=== PATIENT | male | born 1985 | race Caucasian/White ===

== ENCOUNTER 2021-11-14 12:45 | Emergency (ER) | payer BC, SELFPAY ==
[2021-11-14 13:01] VITALS: BP 139/87; PULSE 87; RESP 18; TEMP 36.6; O2SAT 98
--- NOTE | 2021-11-14 13:08 | ED.EAR ---
HPI - Ear Problem General Chief complaint: Ear Stated complaint: rt ear pain Time Seen by Provider: 11/14/21 13:08 Source: patient, RN notes reviewed and old records reviewed Mode of arrival: ambulatory Limitations: no limitations History of Present Illness HPI Narrative: 36-year-old male who presents to [facility] care with complaints of right ear pain which started yesterday. Patient states initially he had, pressure feeling in his right ear he used some OTC eardrops for his ear pain and it seemed to help. This morning he had some yellowish drainage on his pillow and now his right ear is mainly ringing. He does admit to some sinus congestion. MD Complaint: ear pain Location: right ear Treatment prior to arrival: eardrops (OTC) Related Data Home Medications Medication Instructions Recorded Confirmed dextroamphetamine-amphetamine ER 25 mg PO DAILY 11/14/21 11/14/21 25 mg 24hr capsule,extend release (Adderall XR) sertraline 100 mg tablet 100 mg DAILY 11/14/21 11/14/21 Allergies Allergy/AdvReac Type Severity Reaction Status Date / Time No Known Allergies Allergy Unverified 04/22/11 17:39 Review of Systems Review of Systems: CONSTITUTIONAL: Denies fever, chills, or sweats. EYES: Denies visual changes, redness, or discharge. ENT: positive for rhinorrhea, congestion,no sore throat,positive for right otalgia. CARDIOVASCULAR: Denies chest pain, palpitations, or edema. RESPIRATORY: Denies cough or dyspnea. GASTROINTESTINAL: Denies abdominal pain, nausea, vomiting, or diarrhea. GENITOURINARY: Denies dysuria or hematuria. SKIN: Denies rash or itching. MUSCULOSKELETAL: Denies back pain, joint pain, or myalgia. NEUROLOGIC: Denies headache, numbness, or weakness. PSYCHIATRIC: Denies anxiety or depression. All systems reviewed & are unremarkable except as noted in HPI and below PMFSH Past Medical History Medical History (Updated 11/16/21 @ 21:22 by Vanessa Sharp NP) ADHD (attention deficit hyperactivity disorder) Anxiety and depression Mononucleosis Social History Social History (Updated 11/14/21 @ 13:28 by Vanessa Sharp NP) Smoking status: Never smoker Alcohol intake: never Substance use type: does not use Gender identity (if verbalized by the patient): Male Comments At time of signature, agree with nursing past medical, surgical, social and family history. There is no relevant family history pertinent to the presenting complaint Exam Narrative: GENERAL: Well-appearing, well-nourished, and in no acute distress. HEAD: Normocephalic, atraumatic. EYES: PERRLA and EOMI. ENT: Nares clear, clear rhinorrhea no epistaxis. Mucous membranes moist.Right TM red and bulging no drainage noted, Left TM normal with good light reflex, throat pink with no lesions or swelling NECK: Supple. no lymphadenopathy CHEST: Clear to auscultation. No respiratory distress.SAO2 98% on room air HEART: Regular rate and rhythm. No murmur heard. Normal peripheral pulses. ABDOMEN: Soft, nontender, nondistended, normal active bowel sounds. EXTREMITIES: Normal range of motion. No edema. SKIN: Warm, dry, no rash. NEURO: No focal deficits. Alert and oriented x3. Course Course Level of Care: Express Care Visit Vital Signs Vital signs: Vital Signs Temperature 36.6 C 11/14/21 13:01 Pulse Rate 87 11/14/21 13:01 Respiratory Rate 18 11/14/21 13:01 Blood Pressure 139/87 11/14/21 13:01 Pulse Oximetry 98 11/14/21 13:01 Oxygen Delivery Room Air 11/14/21 13:01 Temperature 36.6 C 11/14/21 13:01 Pulse Rate 87 11/14/21 13:01 Respiratory Rate 18 11/14/21 13:01 Blood Pressure 139/87 11/14/21 13:01 Pulse Oximetry 98 11/14/21 13:01 Oxygen Delivery Room Air 11/14/21 13:01 Medical Decision Making Differential Diagnosis Differential Diagnosis: URI, otitis media, otitis externa, viral syndrome Medical Records Medical records reviewed: Yes I reviewed the external patient's medical records.
== END 2021-11-14 13:27 | disposition home or self-care (01) ==
PROVIDERS: Emergency Provider Registered Nurse
DX: H66.91 Otitis media, unspecified, right ear (principal); F90.9 Attention-deficit hyperactivity disorder, unspecified type; F41.9 Anxiety disorder, unspecified; F32.A Depression, unspecified
CPT/HCPCS: 99213; G0463

== ENCOUNTER 2022-08-06 10:07 | Emergency (ER) | payer BC, SELFPAY ==
--- NOTE | 2022-08-06 10:11 | ED.MALEGU ---
HPI - Male Genitourinary General Chief complaint: Urogenital-Male Stated complaint: Male Urogenital Time Seen by Provider: 08/06/22 10:26 Source: patient and RN notes reviewed Mode of arrival: ambulatory Limitations: no limitations History of Present Illness HPI Narrative: 37-year-old male presents with concern for hematuria. He reports he noticed it started yesterday. He reports suprapubic pressure that extends toward his left testicle. He denies any testicle pain, redness, swelling. He denies dysuria, frequency, urgency. Denies nausea, vomiting, diarrhea, chills, sweats, fever. He denies back pain. He denies any history of problems with his bladder. Denies concern for STDs. He reports several weeks ago he started on rosuvastatin MD Complaint: other (Hematuria) Related Data Home Medications Medication Instructions Recorded Confirmed dextroamphetamine-amphetamine ER 25 mg PO DAILY 11/14/21 08/06/22 25 mg 24hr capsule,extend release (Adderall XR) sertraline 100 mg tablet 100 mg DAILY 11/14/21 08/06/22 rosuvastatin 10 mg tablet 10 mg PO DAILY 08/06/22 08/06/22 Allergies Allergy/AdvReac Type Severity Reaction Status Date / Time No Known Allergies Allergy Verified 08/06/22 10:24 Review of Systems Review of Systems: CONSTITUTIONAL: Denies malaise, chills, sweats, or fever. CARDIOVASCULAR: Denies chest pain, palpitations, or edema. RESPIRATORY: Denies cough or dyspnea. GASTROINTESTINAL: Denies abdominal pain, nausea, vomiting, diarrhea GENITOURINARY: Denies dysuria, frequency, urgency, suprapubic pressure. Denies flank pain. Reports hematuria. SKIN: Denies rash or itching. MUSCULOSKELETAL: Denies back pain or myalgia. All systems reviewed & are unremarkable except as noted in HPI and below PMFSH Past Medical History Medical History (Updated 08/06/22 @ 10:29 by Tootie Herbert NP) ADHD (attention deficit hyperactivity disorder) Anxiety and depression Mononucleosis Social History Social History (Updated 11/14/21 @ 13:28 by Vanessa Sharp NP) Smoking status: Never smoker Alcohol intake: never Substance use type: does not use Gender identity (if verbalized by the patient): Male Comments At time of signature, agree with nursing past medical, surgical, social and family history. There is no relevant family history pertinent to the presenting complaint Exam Narrative: GENERAL: Well-appearing, well-nourished, and in no acute distress. HEAD: Normocephalic. EYES: PERRLA, conjunctivae clear. NECK: Supple. No lymphadenopathy CHEST: Clear to auscultation. No respiratory distress. HEART: Regular rate and rhythm. ABDOMEN: Soft, nontender upon palpation, nondistended, normal active bowel sounds, no palpable or pulsatile masses, no guarding. No CVA tenderness SKIN: Warm, dry, no rash. NEURO: Alert and oriented x3. PSYCH: Normal mood and affect Course Course Emergency Course: Patient is aware of diagnosis, understands and agrees to treatment plan. Anticipatory guidance given. Patient agrees to follow-up as directed and is aware of reasons to seek care at the emergency department. Portions of this record may have been created with voice recognition software Level of Care: Express Care Visit Vital Signs Vital signs: Reviewed. MDM - Male Genitourinary MDM Narrative Medical decision making narrative: Exam findings and UA show no acute concerns or changes; patient is non-toxic appearing and is in no distress. Patient is appropriate for outpatient treatment and follow-up. Differential Diagnosis Differential diagnosis: Likely urinary tract infection, urethritis, epididymitis and prostatitis Critical Care Time Critical Care Time Critical Care Time: No Discharge Plan Discharge Clinical Impression: Hematuria Patient Disposition: Home, Self-Care Condition: Stable Instructions: Hematuria (ED) Additional Instructions: We will send a urine culture to the lab; if th
[2022-08-06 10:17] VITALS: BP 133/88; PULSE 92; RESP 18; TEMP 36.7; O2SAT 100
== END 2022-08-06 10:40 | disposition home or self-care (01) ==
PROVIDERS: Emergency Provider Nurse Practitioner
DX: R31.9 Hematuria, unspecified (principal); F90.9 Attention-deficit hyperactivity disorder, unspecified type; F41.9 Anxiety disorder, unspecified; F32.A Depression, unspecified
CPT/HCPCS: 81003; 87086; 99213; G0463

== ENCOUNTER 2023-11-12 00:56 | Day surgery (SDC) | payer BC, SELFPAY ==
[2023-10-25 13:57] VITALS: BMI 24.4
[2023-11-12 11:08] VITALS: BP 115/84; PULSE 75; RESP 14; TEMP 36.5; O2SAT 100
[2023-11-12] MEDS: LACTATED RINGERS 1,000 ML 150 ML IV CONT (11:16)
--- NOTE | 2023-11-12 11:17 | WPDANESEPPF ---
Anes - Initial Pre Proc Eval Procedure: Operation Date: 11/12/23 12:30 Proposed Procedures p Colonoscopy - Brian Garcia MD Date/Time: 11/12/23 11:17 Surgeon: Brian Garcia MD Pre Op Diagnosis: Hemorrhage of anus and rectum Patient Data Age: 38 Gender: M Height: 1.78 m Weight: 75.6 kg Last Vital Signs Temp 97.7 F 11/12/23 11:08 Pulse 75 11/12/23 11:08 Resp 14 11/12/23 11:08 BP 115/84 11/12/23 11:08 Pulse Ox 100 11/12/23 11:08 O2 Del Method Room Air 11/12/23 11:08 Allergies Allergy/AdvReac Type Severity Reaction Status Date / Time No Known Allergies Allergy Verified 11/12/23 11:07 Home Medications Medication Instructions Recorded Confirmed Type sertraline 100 mg tablet 100 mg PO DAILY #90 tabs 04/29/23 11/12/23 Rx hydrocortisone 2.5 % topical cream 1 applic RECTAL BID PRN 08/24/23 11/12/23 Rx with perineal applicator hemorrhoids #30 grams dextroamphetamine-amphetamine ER 50 mg PO . Q.a.m. #60 caps 10/29/23 11/12/23 Rx 25 mg 24hr capsule,extend release (Adderall XR) Patient hx anesthesia problems: none Family hx anesthesia problems: none Results Review: All pre-operative results and documents have been reviewed as part of the pre-operative evaluation. [facility] Past Medical History Medical History (Updated 11/06/23 @ 09:36 by Cole Rivera MD) ADHD (attention deficit hyperactivity disorder) ADHD (attention deficit hyperactivity disorder), inattentive type (~1996) BMI 24.0-24.9, adult BMI 25.0-25.9,adult Central sleep apnea (~2018) Chronic anxiety (~1996) Chronic constipation Chronic depression (~1996) Encounter for wellness examination in adult Mixed hyperlipidemia total cholesterol 233, triglycerides 198, HDL 48, LDL 145 on 11/04/2022. Cholesterol 229, triglycerides 187, HDL 52, LDL 145 with ratio 4.4 on 11/03/2023. Mononucleosis Rectal bleeding Hemoglobin 14.8 with iron 52 with 14% saturation and ferritin 60 on 11/03/2023 Family History Family History Father Hypertension Cerebrovascular accident Mother Thyroid disorder Social History Social History Smoking status: Never smoker Alcohol intake: current Drinks per week: 1 Alcohol use details: beer Substance use: never Substance use type: does not use Lack of Transportation: No Lack of Food: Never True Current Housing: I Have Housing Concerned About Future Housing: No Difficulty Paying Gas/Electric Bills: No Difficulty Paying for Meds: No Currently Unemployed: No Education: Bachelor's Degree Difficulty w/ Childcare or Family Care: No Living arrangements: with family Gender identity (if verbalized by the patient): Male Spiritual care concerns: No Anes - Eval Final PreProcedure Day of Procedure 11/12/23 11:17 Patient weight: normal Heart: regular rate and rhythm Lungs: clear to auscultation Airway: Mallampati scale class II Neurological: alert and oriented Last oral intake: >/= 8 hours ASA classification: II Emergent: no Anesthetic plan: proceed Anesthesia type and monitoring: general GIVS and standard monitoring Results Review: All pre-operative results and documents have been reviewed as part of the pre-operative evaluation. Informed Consent: The patient's anesthetic plan and its attendant risks and benefits were discussed with the patient/family/POA. Questions were solicited and answers provided to the satisfaction of the patient/family/POA.
--- NOTE | 2023-11-12 11:42 | PM.HPGS ---
History of Present Illness History of Present Illness Consent: Risks, benefits, and alternatives have been discussed and questions answered. Patient agrees to proceed with procedure. Chief complaint: Hemorrhage of anus and rectum Narrative: Juan Staley is a 38 year old male with episode of rectal bleeding, had colonoscopy about 14 years ago for same reason Review of Systems Review of Systems: All systems reviewed & are unremarkable except as noted in HPI and below PMFSH Past Medical History Medical History (Updated 11/06/23 @ 09:36 by Cole Rivera MD) ADHD (attention deficit hyperactivity disorder) ADHD (attention deficit hyperactivity disorder), inattentive type (~1996) BMI 24.0-24.9, adult BMI 25.0-25.9,adult Central sleep apnea (~2018) Chronic anxiety (~1996) Chronic constipation Chronic depression (~1996) Encounter for wellness examination in adult Mixed hyperlipidemia total cholesterol 233, triglycerides 198, HDL 48, LDL 145 on 11/04/2022. Cholesterol 229, triglycerides 187, HDL 52, LDL 145 with ratio 4.4 on 11/03/2023. Mononucleosis Rectal bleeding Hemoglobin 14.8 with iron 52 with 14% saturation and ferritin 60 on 11/03/2023 Family History Family History Father Hypertension Cerebrovascular accident Mother Thyroid disorder Social History Social History Smoking status: Never smoker Alcohol intake: current Drinks per week: 1 Alcohol use details: beer Substance use: never Substance use type: does not use Lack of Transportation: No Lack of Food: Never True Current Housing: I Have Housing Concerned About Future Housing: No Difficulty Paying Gas/Electric Bills: No Difficulty Paying for Meds: No Currently Unemployed: No Education: Bachelor's Degree Difficulty w/ Childcare or Family Care: No Living arrangements: with family Gender identity (if verbalized by the patient): Male Spiritual care concerns: No Meds Home Medications and Allergies Home Medications Medication Instructions Recorded Confirmed Type sertraline 100 mg tablet 100 mg PO DAILY #90 tabs 04/29/23 11/12/23 Rx hydrocortisone 2.5 % topical cream 1 applic RECTAL BID PRN 08/24/23 11/12/23 Rx with perineal applicator hemorrhoids #30 grams dextroamphetamine-amphetamine ER 50 mg PO . Q.a.m. #60 caps 10/29/23 11/12/23 Rx 25 mg 24hr capsule,extend release (Adderall XR) Allergies Allergy/AdvReac Type Severity Reaction Status Date / Time No Known Allergies Allergy Verified 11/12/23 11:07 Vital Signs Vital Signs - 24 hr 11/12/23 11:08 Temperature 97.7 F Pulse Rate 75 Respiratory Rate 14 Blood Pressure 115/84 Pulse Oximetry 100 Oxygen Delivery Room Air Exam Const: General: comfortable and no acute distress HENMT: Face/Nose/Sinus: Normal nares present Eyes: General: appearance normal, both eyes and all related structures Neck: Neck: no JVD Resp: Auscultation: clear to auscultation bilaterally Cardio: Rate: regular rate Rhythm: regular rhythm GI: Inspection: non-distended GI Palp: Yes Soft to palpation Skin: General skin exam: normal color Neuro: General: gait normal Speech: normal speech Extrem: General: normal to inspection Psych: Mental Status: mental status grossly normal Assessment and Plan Assessment and plan (1) Rectal bleeding: Code(s): K62.5 - Hemorrhage of anus and rectum Status: Acute Assessment and Plan: colonoscopy
[2023-11-12 12:00] VITALS: BP 108/72; PULSE 82; RESP 14; O2SAT 97
[2023-11-12 12:10] VITALS: BP 116/73; PULSE 64; RESP 14; O2SAT 100
[2023-11-12 12:20] VITALS: BP 112/82; PULSE 69; RESP 14; O2SAT 100
== END 2023-11-12 12:31 | disposition home or self-care (01) ==
PROVIDERS: PCP Family Medicine; Referring Provider Nurse Practitioner Family; Visit Provider Internal Medicine Gastroenterology
PROC: 0DJD8ZZ Inspection of Lower Intestinal Tract, Via Natural or Artificial Opening Endoscopic (ICD-10-PCS; CPT 45378; principal; 2023-11-12 12:30)
DX: K64.8 Other hemorrhoids (principal); F90.9 Attention-deficit hyperactivity disorder, unspecified type; F41.9 Anxiety disorder, unspecified; F32.A Depression, unspecified; E78.2 Mixed hyperlipidemia
CPT/HCPCS: 45378; J2704; J7120